=== PATIENT | female | born 1995 | race Caucasian/White ===

== ENCOUNTER 2017-04-24 12:40 | Emergency (ER) | payer MEDICAID, OTHER ==
[~2017-04-24] VITALS: Ht 167.6 cm; Wt 72.0 kg
[~2017-04-24 12:40] MED LIST: NAPR220C PO; PROM25AM11 PO; VIC PO
[2017-04-24 12:44] VITALS: Ht 167.6 cm; Wt 72.0 kg
[2017-04-24] MEDS ORDERED: ONDANSETRON (ODT) 4 MG TAB ODT STA (14:23)
--- NOTE | 2017-04-24 14:31 | ERD ---
ER Documentation Chief Complaint Date/Time DATE: 04/24/17 TIME: 14:25 Chief Complaint vomiting and hiccups x 2 days HPI Otherwise healthy 22-year-old female presents the emergency department complaining of decreased appetite and hiccups 2 days. Patient also states that today she has been feeling nauseous and vomited 3 times after eating. Patient denies any fever, diarrhea, dysuria, vaginal discharge. Last bowel movement was over 2 days ago but normal at that time. ROS All systems reviewed and are negative except as per history of present illness. Medications Home Meds Active Scripts Docusate Sodium* (Colace*) 100 Mg Capsule, 100 MG PO BID, #30 CAP Prov:UNA BOWSER PA-C 04/24/17 Acetaminophen* (Tylenol*) 325 Mg Tablet, 2 TAB PO Q6 Y for PAIN AND OR ELEVATED TEMP, #20 TAB Prov:UNA BOWSER PA-C 04/24/17 Ondansetron (Ondansetron Odt) 4 Mg Tab.rapdis, 4 MG PO Q6H Y for NAUSEA AND/OR VOMITING, #15 TAB Prov:UNA BOWSER PA-C 04/24/17 Reported Medications Promethazine Hcl (Phenergan) 25 Mg/Ml Ampul, 25 MG PO BID 07/17/13 Acetaminophen/Hydrocodone (Vicodin) 1 Tab Tab, 1 TAB PO DAILY 07/17/13 Naproxen* (Naproxen*) 220 Mg Capsule, 500 MG PO BID 07/17/13 Allergies Allergies: Coded Allergies: No Known Allergy (Unverified , 12/09/13) PMhx/Soc History of Surgery: Yes (TONSILS REMOVED 15 YEARS AGO) Anesthesia Reaction: No Hx Neurological Disorder: No Hx Respiratory Disorders: No Hx Cardiac Disorders: No Hx Psychiatric Problems: No Hx Miscellaneous Medical Probl: No Hx Alcohol Use: No Hx Substance Use: No Hx Tobacco Use: No Physical Exam Vitals Vital Signs Date Time Temp Pulse Resp B/P Pulse Ox O2 Delivery O2 Flow Rate FiO2 04/24/17 12:44 98.0 68 18 115/56 100 Physical Exam Const: Well-developed, well-nourished, no acute distress Head: Atraumatic Eyes: Normal Conjunctiva ENT: Normal External Ears, Nose and Mouth. Neck: Full range of motion..~ No meningismus. Resp: Clear to auscultation bilaterally Cardio: Regular rate and rhythm, no murmurs Abd: Soft, non tender, non distended. Normal bowel sounds Skin: No petechiae or rashes Back: No midline or flank tenderness Ext: No cyanosis, or edema Neur: Awake and alert Psych: Normal Mood and Affect Result Diagram: 04/24/17 1445 04/24/17 1445 Results 24 hrs Laboratory Tests Test 04/24/17 14:37 04/24/17 14:45 Urine Color YELLOW Urine Clarity SLIGHTLY CLOUDY Urine pH 7.0 Urine Specific Epps 1.015 Urine Ketones NEGATIVE Urine Nitrite NEGATIVE Urine Bilirubin 1+ Urine Ictotest NEGATIVE Urine Urobilinogen 1.0 E.U./dL Urine Leukocyte Esterase NEGATIVE Urine Microscopic RBC NONE SEEN/HPF Urine Microscopic WBC NONE SEEN/HPF Urine Squamous Epithelial Cells MODERATE Urine Mucus OCCASIONAL Urine Hemoglobin NEGATIVE Urine Glucose NEGATIVE% Urine Total Protein TRACE White Blood Count 11.810^3/ul Red Blood Count 5.1610^6/ul Hemoglobin 15.7g/dl Hematocrit 47.5% Mean Corpuscular Volume 92.1fl Mean Corpuscular Hemoglobin 30.4pg Mean Corpuscular Hemoglobin Concent 33.1g/dl Red Cell Distribution Width 12.3% Platelet Count 53813^3/UL Mean Platelet Volume 9.4fl Neutrophils % 71.7% Lymphocytes % 21.8% Monocytes % 4.9% Eosinophils % 1.1% Basophils % 0.2% Nucleated Red Blood Cells % 0.0/100WBC Neutrophils # 8.510^3/ul Lymphocytes # 2.610^3/ul Monocytes # 0.610^3/ul Eosinophils # 0.110^3/ul Basophils # 0.010^3/ul Nucleated Red Blood Cells # 0.010^3/ul Sodium Level 140mmol/L Potassium Level 4.2mmol/L Chloride Level 105mmol/L Carbon Dioxide Level 27mmol/L Anion Gap 12 Blood Urea Nitrogen 6mg/dl Creatinine 0.63mg/dl Glucose Level 95mg/dl Calcium Level 9.9mg/dl Total Bilirubin 0.3mg/dl Direct Bilirubin 0.00mg/dl Indirect Bilirubin 0.3mg/dl Aspartate Amino Transf (AST/SGOT) 19IU/L Alanine Aminotransferase (ALT/SGPT) 24IU/L Alkaline Phosphatase 100IU/L Total Protein 8.9g/dl Albumin 4.8g/dl Globulin 4.10g/dl Albumin/Globulin Ratio 1.17 Lipase 93U/L Current Medications Medications (Trade) Dose Ordered Sig/Rafael Route PRN Reason Start Time Stop Time Status Last Admin Dose Admin Ondansetron HCl (Zofran Odt) 4 mg ONCE STAT ODT 04/24/17 14:23 04/24/17 14:25 DC 04/24/17 15:08 Chlorpromazine (Thorazine) 25 mg ONCE ONCE IM 04/24/17 15:00 04/24/17 15:01 DC Procedures/MDM Otherwise healthy 22-year-old female presents the emergency department for complaints of hiccups 3 days as well as nausea and vomiting today. Upon arrival patient afebrile, non-tachycardic, normotensive and non-hypoxic patient well-appearing, nontoxic, in no acute distress. Patient without any complaint of abdominal pain or tenderness. Patient's last bowel movement was over 2 days ago but normal at that time. CBC showed mildly elevated white count likely due to stress reaction. Otherwise no evidence severe anemia. CMP showed no evidence of electrolyte abnormalities, severe acidosis, alkalosis , renal failure, or liver disease. Lipase showed no evidence of acute pancreatitis. UA showed no evidence of acute infection or hematuria. Urine test was negative. 25 mg of Thorazine was administered IM to control hiccups. Patient given Zofran and successfully completed oral fluid challenge. Given these findings, the patients presentation is most consistent with hiccups as well as abdominal pain which likely due to constipation versus an acute viral syndrome. At this time I have low suspicion for acute appendicitis , cholecystitis, pancreatitis, ovarian torsion, tubo-ovarian abscess, diverticulitis, urinary tract infection, or ectopic . Strict return precautions discussed. Based on patient's history of present illness and physical examination the decision was made to discharge. The patient was re-evaluated after ED treatment and stabilizing measures, and symptoms have improved. There is no evidence of life threatening injuries or illnesses at this time. On re-examination, patient resting in no distress, stable vital signs, reports feeling better and safe for discharge with outpatient follow up with PMD in 1-2 days. Patient given return precautions. Departure Diagnosis: Primary Impression: Vomiting Vomiting type: unspecified Vomiting Intractability: non-intractable Nausea presence: with nausea Qualified Code: R11.2 - Non-intractable vomiting with nausea, unspecified vomiting type Additional Impression: UNA Abdullahi PA-C April 24, 2017 14:31
[2017-04-24 14:56] LABS: ADD SCAN DIFF NO
[2017-04-24 14:57] LABS: BASOPHILS % 0.2 % (0.0-2.0); EOSINOPHILS # 0.1 10^3/ul (0.0-0.5); EOSINOPHILS % 1.1 % (0.0-7.0); HEMATOCRIT 47.5 % (37.0-47.0); HEMOGLOBIN 15.7 g/dl (12.0-16.0); LYMPHOCYTES # 2.6 10^3/ul (0.8-2.9); LYMPHOCYTES % 21.8 % (15.0-51.0); MEAN CORPUSCULAR HEMOGLOBIN 30.4 pg (29.0-33.0); MEAN CORPUSCULAR HGB CONC 33.1 g/dl (32.0-37.0); MEAN CORPUSCULAR VOLUME 92.1 fl (82.0-101.0); MEAN PLATELET VOLUME 9.4 fl (7.4-10.4); MONOCYTE # 0.6 10^3/ul (0.3-0.9); MONOCYTES % 4.9 % (0.0-11.0); NEUTROPHIL # 8.5 10^3/ul (1.6-7.5); NEUTROPHILS % 71.7 % (39.0-77.0); PLATELET COUNT 393 10^3/UL (140-415); RED BLOOD COUNT 5.16 10^6/ul (4.20-5.40); RED CELL DISTRIBUTION WIDTH 12.3 % (11.5-14.5); WHITE BLOOD COUNT 11.8 10^3/ul (4.8-10.8)
[2017-04-24] MEDS ORDERED: CHLORPROMAZINE 25 MG INJ IM ONE (15:00)
[2017-04-24 15:11] LABS: ADD UMIC YES; URINE BILIRUBIN (Dip) 1+ (NEGATIVE); URINE BLOOD (Dip) NEGATIVE (NEGATIVE); URINE COLOR YELLOW (YELLOW); URINE GLUCOSE (Dip) NEGATIVE (NEGATIVE); URINE KETONES (Dip) NEGATIVE (NEGATIVE); URINE LEUKOCYTE ESTERASE (Dip) NEGATIVE (NEGATIVE); URINE NITRITE (Dip) NEGATIVE (NEGATIVE); URINE TOTAL PROTEIN (Dip) TRACE (NEGATIVE); URINE UROBILINOGEN (Dip) 1.0 E.U./dL (0.1-1.0)
[2017-04-24 15:15] LABS: ALBUMIN 4.8 g/dl (3.3-4.9); ALBUMIN/GLOBULIN RATIO 1.17; BILIRUBIN,INDIRECT 0.3 mg/dl (0-1.1); BILIRUBIN,TOTAL 0.3 mg/dl (0.2-1.3); CALCIUM 9.9 mg/dl (8.4-10.2); CREATININE 0.63 mg/dl (0.44-1.00); POTASSIUM 4.2 mmol/L (3.5-5.1); TOTAL PROTEIN 8.9 g/dl (6.1-8.1)
[2017-04-24 15:22] LABS: ICTOTEST NEGATIVE (NEGATIVE)
[2017-04-24 15:24] LABS: MUCUS,URINE OCCASIONAL; SQUAMOUS EPITHELIAL CELL,UR MODERATE; URINE RBCS NONE SEEN /HPF (0)
[2017-04-24] MEDS ORDERED: DOCU-144 PO (15:41)
[2017-04-24] MEDS ORDERED: ONDA4TAB14 PO (15:41)
[2017-04-24] MEDS ORDERED: ACET325T33 PO (15:41)
== END 2017-04-24 16:04 | disposition home or self-care (01) ==
LOC: FTE 12:40
DX: R11.2 Nausea with vomiting, unspecified (principal); R06.6 Hiccough
CPT/HCPCS: 80053; 81001; 83690; 85025; 96372; J3230; Z7502; Z7610